=== PATIENT | female | born 2000 | race Caucasian/White ===

== ENCOUNTER 2024-03-17 23:01 | Emergency (ER) | payer MEDICAID, SELFPAY ==
[2024-03-18] MEDS ORDERED: Ibuprofen 200 MG TAB ONE (00:50)
[2024-03-18] MEDS ORDERED: Acetaminophen 500 MG TAB ONE (00:50)
== END 2024-03-18 01:05 | disposition home or self-care (01) ==
LOC: NAV ERS 23:01
DX: S06.0X0A Concussion without loss of consciousness, initial encounter (principal); S00.93XA Contusion of unspecified part of head, initial encounter; F17.210 Nicotine dependence, cigarettes, uncomplicated; W01.10XA Fall on same level from slipping, tripping and stumbling with subsequent striking against unspecified object, initial encounter; Y93.01 Activity, walking, marching and hiking; Y92.009 Unspecified place in unspecified non-institutional (private) residence as the place of occurrence of the external cause
CPT/HCPCS: 70450